=== PATIENT | male | born 1960 | race Caucasian/White ===

== ENCOUNTER 2024-03-25 11:35 | Emergency (ER) | payer SELFPAY ==
[2024-03-25] VITALS (10 sets, daily range): BP systolic 146–160; BP diastolic 95–102; PULSE 64–72; TEMP 36.7; O2SAT 95–98; BMI 27.3
--- NOTE | 2024-03-25 12:06 | CT_ITS ---
The [address] [address] Patient Name: MARY PEACOCK MRN: [id number] date: 1960 Sex: M Assigned Patient Location: ER Current Patient Location: Accession/Order Number: [id number] Exam Date: 03/25/2024 12:30 Report Date: 03/25/2024 12:52 At the request of: JAIDA YOON Procedure: CT head/brain wo con EXAMINATION: CT head/brain wo con HISTORY: Head injury COMPARISON: No relevant comparison available. TECHNIQUE: Axial CT images were obtained without IV contrast. Dose reduction techniques were achieved by using automated exposure control and/or adjustment of mA and/or kV according to patient size and/or use of iterative reconstruction technique. FINDINGS: BRAIN: Several incidental pleural-based calcifications. No edema, hemorrhage, mass, acute infarction, or inappropriate atrophy. CSF SPACES: No hydrocephalus, subarachnoid hemorrhage, or mass. Appropriate for age. SKULL: No fracture, mass, or other significant visible lesion. SINUSES: No significant mucosal thickening or fluid on the limited views. ORBITS: No appreciable abnormality on the limited views. OTHER: Left forehead laceration and bruising/edema. No radiopaque or body. CT/CT head/brain wo con IMPRESSION: 1. No intracranial hemorrhage or acute abnormality brain. 2. Left forehead laceration and bruising. No radial opaque foreign body. 3. No fracture of the calvarium. Electronically authenticated by: YOANNA DANIEL Date: 03/25/2024 12:52
--- NOTE | 2024-03-25 12:07 | CT_ITS ---
The [address] [address] Patient Name: MARY PEACOCK MRN: [id number] date: 1960 Sex: M Assigned Patient Location: ER Current Patient Location: ER Accession/Order Number: [id number] Exam Date: 03/25/2024 12:30 Report Date: 03/25/2024 12:56 At the request of: JAIDA YOON Procedure: CT cervical spine wo con EXAMINATION: CT cervical spine wo con HISTORY: Head injury COMPARISON: No relevant comparison available. TECHNIQUE: Axial, Coronal, and Sagittal images were created without IV contrast. Dose reduction techniques were achieved by using automated exposure control and/or adjustment of mA and/or kV according to patient size and/or use of iterative reconstruction technique. FINDINGS: VERTEBRAL BODIES: Mild left convex curvature of cervical spine. No fracture or significant spondylolisthesis. FACET JOINTS: Multilevel moderate degenerative facet arthropathy, right greater than left. No disruption or abnormal widening. DISCS: Multilevel mild narrowing. CENTRAL CANAL: No evidence of hemorrhage. PARASPINAL AREA: No visible mass. CT/CT cervical spine wo con IMPRESSION: 1. No appreciable acute abnormality. 2. Moderate degenerative changes. Electronically authenticated by: YOANNA DANIEL Date: 03/25/2024 12:56
--- NOTE | 2024-03-25 12:07 | ED.GENADUL1 ---
Documented by User: Frank Paul MD 03/25/24 14:03 HPI HPI - General Adult General Chief complaint: Head Injury Stated complaint: LACERATION - HEAD Time Seen by Provider: 03/25/24 12:03 History of Present Illness HPI narrative: 63-year-old male presents to the emergency department for an injury to his head. He was up on a ladder inside of a barn and the ladder slid out and he came down. He reports losing consciousness. He sustained a laceration to his forehead and contusion to the occipital area. He does not complain of neck pain. A person accompanying him states that the patient has been repeating himself several times. No vomiting or any other injury. He has no chest pain abdominal pain or shortness of breath. No injury to his extremities. Related Data Previous Rx's ?Medication ?Instructions ?Recorded cephalexin 500 mg capsule 500 mg PO TID 7 days #21 caps 03/25/24 Allergies Allergy/AdvReac Type Severity Reaction Status Date / Time No Known Drug Allergies Allergy Verified 03/25/24 12:17 Opioid HPI Opioid Management Most Recent Opioid Data: No Data to Display Review of Systems ROS Narrative A ten point review of systems is negative except as noted above. Exam Narrative Exam Narrative: Nurses note and vital signs reviewed and patient is not hypoxic. General: The patient appears in no acute respiratory distress. He is sitting on the cart and had walked into the room. Skin: Warm, dry, no pallor noted. There is no rash noted. Head: Normocephalic, 2 cm irregular laceration present on his forehead to the left of midline. Hematoma with abrasion present on the occiput. Cervical spine nontender. Eye: Normal conjunctiva, no drainage Ears, Nose, Mouth, and Throat: oral mucosa is moist. Nares patent. Cardiovascular: Regular Rate and Rhythm Respiratory: Patient is in no distress, no accessory muscle use, lungs are clear to auscultation, no wheezing, rales or rhonchi Back: C-spine, T-spine, and lumbar spine nontender GI: Soft and nontender Musculoskeletal: Full range of motion present in all 4 extremities Neurological: Awake and alert, moves all 4 extremities well Psychiatric: Cooperative Constitutional Vital Signs, click to edit/add: Last Vital Signs Temp 98.1 F 03/25/24 12:08 Pulse 72 03/25/24 13:20 Resp 20 03/25/24 13:20 BP 146/95 H 03/25/24 13:30 Pulse Ox 97 03/25/24 13:20 O2 Del Method Room Air 03/25/24 12:08 Course Vital Signs Vital signs: Vital Signs Temperature 98.1 F 03/25/24 12:08 Pulse Rate 66 03/25/24 12:08 Respiratory Rate 18 03/25/24 12:08 Blood Pressure 160/97 H 03/25/24 12:08 Pulse Oximetry 98 03/25/24 12:08 Oxygen Delivery Method Room Air 03/25/24 12:08 Temperature 98.1 F 03/25/24 12:08 Pulse Rate 72 03/25/24 13:20 Respiratory Rate 20 03/25/24 13:20 Blood Pressure 146/95 H 03/25/24 13:30 Pulse Oximetry 97 03/25/24 13:20 Oxygen Delivery Method Room Air 03/25/24 12:08 Medical Decision Making MDM Narrative Medical decision making narrative: CT brain and CT C-spine are negative per radiologist. The wound has been repaired. Tetanus is already up-to-date. Sutures to be removed in 6 to 8 days. Treatment diagnosis and follow-up were discussed with the patient and his family. Differential Diagnosis Differential Diagnosis: Laceration, hematoma, subdural hematoma, subarachnoid hemorrhage, epidural Imaging Data CT scan - head: Radiologist's impression: ITS Impressions Head CT 03/25/24 12:06 IMPRESSION: 1. No intracranial hemorrhage or acute abnormality brain. 2. Left forehead laceration and bruising. No radial opaque foreign body. 3. No fracture of the calvarium. Electronically authenticated by: YOANNA DANIEL Date: 03/25/2024 12:[address] 03/25/24 12:07 IMPRESSION: 1. No appreciable acute abnormality. 2. Moderate degenerative changes. Electronically authenticated by: YOANNA DANIEL Date: 03/25/2024 12:56 Discharge Plan Discharge Chief Complaint: Head Injury Clinical Impression: Forehead laceration, Hematoma of occipital region of scalp Patient Disposition: Home, Self-Care Time of Disposition Decision: 14:00 Condition: Good Mode of Transportation: Private Vehicle Prescriptions / Home Meds: New cephalexin 500 mg capsule 500 mg PO TID 7 Days Qty: 21 0RF Print Language: Citizen Of [place] Instructions: Laceration (ED), Scalp Contusion in Adults (ED) Additional Instructions: Sutures to be removed in 6 to 8 days Referrals: UMANG HERRERA [Primary Care Provider] - 1 week Documented by User: AURELIA Vick 03/25/24 14:08 HPI HPI - General Adult General Chief complaint: Head Injury Stated complaint: LACERATION - HEAD Time Seen by Provider: 03/25/24 12:03 Related Data Previous Rx's ?Medication ?Instructions ?Recorded cephalexin 500 mg capsule 500 mg PO TID 7 days #21 caps 03/25/24 Allergies Allergy/AdvReac Type Severity Reaction Status Date / Time No Known Drug Allergies Allergy Verified 03/25/24 12:17 Opioid HPI Opioid Management Most Recent Opioid Data: No Data to Display Exam Constitutional Vital Signs, click to edit/add: Last Vital Signs Temp 98.1 F 03/25/24 12:08 Pulse 72 03/25/24 13:20 Resp 20 03/25/24 13:20 BP 146/95 H 03/25/24 13:30 Pulse Ox 97 03/25/24 13:20 O2 Del Method Room Air 03/25/24 12:08 Course Vital Signs Vital signs: Vital Signs Temperature 98.1 F 03/25/24 12:08 Pulse Rate 66 03/25/24 12:08 Respiratory Rate 18 03/25/24 12:08 Blood Pressure 160/97 H 03/25/24 12:08 Pulse Oximetry 98 03/25/24 12:08 Oxygen Delivery Method Room Air 03/25/24 12:08 Temperature 98.1 F 03/25/24 12:08 Pulse Rate 72 03/25/24 13:20 Respiratory Rate 20 03/25/24 13:20 Blood Pressure 146/95 H 03/25/24 13:30 Pulse Oximetry 97 03/25/24 13:20 Oxygen Delivery Method Room Air 03/25/24 12:08 Medical Decision Making MDM Narrative Medical decision making narrative: CT brain and CT C-spine are negative per radiologist. The wound has been repaired. Tetanus is already up-to-date. Sutures to be removed in 6 to 8 days. Treatment diagnosis and follow-up were discussed with the patient and his family. Laceration repair: Done under sterile conditions. The use of Shur-Clens prep the area. Local injection with lidocaine 1% with epi was used, approximately 5 cc. The wound was irrigated copiously with normal saline. The wound was explored there was no evidence of foreign material. The laceration was approximated with 5-0 nylon. 6 simple interrupted sutures were placed. Patient tolerated the procedure well. The patient was neurovascularly intact post. the patient had bacitracin applied to the laceration and a dry sterile dressing was place. The patient will need to follow-up in the next 6-8 days for removal Imaging Data CT scan - head: Radiologist's impression: ITS Impressions Head CT 03/25/24 12:06 IMPRESSION: 1. No intracranial hemorrhage or acute abnormality brain. 2. Left forehead laceration and bruising. No radial opaque foreign body. 3. No fracture of the calvarium. Electronically authenticated by: YOANNA DANIEL Date: 03/25/2024 12:[address] 03/25/24 12:07
[2024-03-25] MEDS: LIDOCAINE HCL 1%-EPINEPHRINE 1:100,000 20 ML MDV INJ (13:46)
[2024-03-25] MEDS: BACITRACIN 0.9 GM PACKET 1 PACKET TOPICAL (13:46)
== END 2024-03-25 14:11 | disposition home or self-care (01) ==
PROVIDERS: Emergency Provider Emergency Medicine; PCP Internal Medicine
DX: S01.81XA Laceration without foreign body of other part of head, initial encounter (principal); S00.03XA Contusion of scalp, initial encounter; W11.XXXA Fall on and from ladder, initial encounter
CPT/HCPCS: 12011; 70450; 72125; 99285